=== PATIENT | female | born 1965 | race Caucasian/White ===

== ENCOUNTER 2022-07-05 17:37 | Outpatient (REF) | payer OTHER, SELFPAY ==
[2022-07-05 18:27] LABS: Influenza A PCR POSITIVE (Negative); Influenza B PCR NEGATIVE (Negative); Resp Syncy Virus RNA Qual PCR NEGATIVE (Negative); SARS COV2 PCR INHOUSE NEGATIVE (Negative)
== END 2022-07-05 17:38 | disposition home or self-care (01) ==
LOC: HO.LNP 17:37
PROVIDERS: Visit Provider Emergency Medicine
DX: R68.89 Other general symptoms and signs (principal); Z20.822 Contact with and (suspected) exposure to COVID-19
CPT/HCPCS: 0241U